=== PATIENT | male | born 1990 | race Caucasian/White ===

== ENCOUNTER 2018-01-10 12:21 | Emergency (ER) | payer OTHER ==
[~2018-01-10] VITALS: Ht 180.3 cm; Wt 108.2 kg
[~2018-01-10 12:21] MED LIST: AMOXICILLIN500 MG PO; AMOXIL500 M1 OR; CLARITIN10 M1 PO; CYCLOBENZAPR10 MG PO; FLEXERIL OR; IMITREX50 MG OR; LYRICA25 MG PO; NAPROSYN500 MG PO; NAPROXEN EC500 MG OR; SUMATRIPTAN SUC50 MG OR
[2018-01-10 13:27] LABS: URINE BILIRUBIN - DIPSTICK NEGATIVE (NEGATIVE); URINE BLOOD DIPSTICK NEGATIVE (NEGATIVE); URINE COLOR YELLOW; URINE GLUCOSE - DIPSTICK NEGATIVE (NEGATIVE); URINE KETONE NEGATIVE (NEGATIVE); URINE LEUK ESTERASE NEGATIVE (NEGATIVE); URINE NITRITE - DIPSTICK NEGATIVE (Negative); URINE PH 5.5 (4.5-8.0); URINE PROTEIN - DIPSTICK NEGATIVE (NEG-TRACE); URINE SPECIFIC GRAVITY 1.025; URINE UROBILINOGEN - DIPSTICK 0.2 E.U./dL (0.2)
[2018-01-10 13:28] LABS: URINE CLARITY CLEAR
[2018-01-10] MEDS ORDERED: MOTRIN400 MG PO (13:52)
[2018-01-10] MEDS ORDERED: ASPERCREME LIDOCA41 TOP (13:52)
[2018-01-10 14:00] VITALS: BP 158/105
== END 2018-01-10 14:00 | disposition home or self-care (01) | DRG 552 ==
LOC: ED 12:21
PROVIDERS: Family Medicine
DX: M54.5 Low back pain (principal); M54.30 Sciatica, unspecified side

== ENCOUNTER 2019-10-09 | Emergency (ER) | payer OTHER ==
[~2019-10-09] MED LIST changes: +ASPERCREME LIDOCA41 TOP; +MOTRIN400 MG PO
[2019-10-09] MEDS ORDERED: ZITHROMAX250 MG PO (12:28)
[2019-10-09] MEDS ORDERED: CODEINE/GUAIFEN1 SOL PO (12:28)
[2019-10-09] MEDS ORDERED: MEDDOSEPAK PO (12:28)
[2019-10-09] MEDS ORDERED: PROVENTIL108 MCG/AC IN (12:28)
== END 2019-10-09 13:05 | disposition home or self-care (01) | DRG 203 ==
DX: J45.909 Unspecified asthma, uncomplicated (principal)

== ENCOUNTER 2019-10-10 | Emergency (ER) | payer OTHER ==
[~2019-10-10] MED LIST changes: +CODEINE/GUAIFEN1 SOL PO; +MEDDOSEPAK PO; +PROVENTIL108 MCG/AC IN; +ZITHROMAX250 MG PO
== END 2019-10-10 03:50 | disposition home or self-care (01) | DRG 605 ==
PROC: 0HQGXZZ Repair Left Hand Skin, External Approach (ICD-10-PCS; principal; 2019-10-10)
DX: S61.012A Laceration without foreign body of left thumb without damage to nail, initial encounter (principal); F17.210 Nicotine dependence, cigarettes, uncomplicated; W27.8XXA Contact with other nonpowered hand tool, initial encounter; Y93.89 Activity, other specified; Y92.009 Unspecified place in unspecified non-institutional (private) residence as the place of occurrence of the external cause